=== PATIENT | female | born 1975 | race Caucasian/White ===

== ENCOUNTER 2019-04-25 21:37 | Emergency (ER) | payer SELFPAY ==
[~2019-04-25] VITALS: Ht 152.4 cm; Wt 60.8 kg
[2019-04-25 21:40] VITALS: BP 137/89
--- NOTE | 2019-04-25 21:40 | NUR ---
TO BED # 04 AMBULATORY
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
--- NOTE | 2019-04-25 21:53 | NUR ---
DR. GRIMES BEDSIDE EVALUATING PT
[2019-04-25 22:27] VITALS: BP 137/89
--- NOTE | 2019-04-25 22:27 | NUR ---
Patient discharged with v/s stable. Written and verbal after care instructions given and explained in thai and translated by myself. Patient alert, oriented and verbalized understanding of instructions. Ambulatory with steady gait. All questions addressed prior to discharge. ID band removed. Patient advised to follow up with PMD. Rx of Acyclovir, Prednisone, Motrin and [place] given. Patient educated on indication of medication including possible reaction and side effects. Opportunity to ask questions provided and answered.
== END 2019-04-25 22:27 | disposition home or self-care (01) ==
LOC: MED 21:37
DX: B02.9 Zoster without complications (principal); Z90.49 Acquired absence of other specified parts of digestive tract
CPT/HCPCS: 99283